=== PATIENT | male | born 1975 ===

== ENCOUNTER 2024-10-01 06:10 | Day surgery (SDC) | payer OTHER ==
[2024-10-01 06:51] LABS: Absolute Basophils 0.1 K/uL (0-0.5); Absolute Eosinophils 0.2 K/uL (0-0.5); Absolute Lymphocytes (CBC) 2.4 K/uL (0.7-4.9); Absolute Monocytes 0.7 K/uL (0.1-1.3); Absolute Neutrophil 2.9 K/uL (1.8-8.0); Basophils % 1.2 % (0-1.3); Eosinophils % 3.6 % (0-4.4); Hematocrit 46.6 % (39.6-49.0); Hemoglobin 16.4 g/dL (13.6-17.9); Lymphocytes % 38.3 % (15.3-44.8); MCH 30.4 pg (27.0-35.0); MCHC 35.1 g/dL (32.0-36.0); MCV 86.7 fL (80-100); MPV 7.3 fL (7.6-11.3); Monocytes % 10.9 % (3.3-12.3); Nucleated Red Blood Cells % 0.2 % (0-0); Platelets 258 thou/uL (152-406); RBC Red Blood Cell Count 5.38 M/uL (4.33-5.43)
[2024-10-01 07:07] LABS: Anion Gap 7.8 mEq/L (5.0-15.0); Potassium 3.8 mEq/L (3.5-5.1)
[2024-10-01] MEDS: Ringers Lactate 1,000 ML IV ONE (07:15)
--- NOTE | 2024-10-01 07:20 | RAD REPORT ---
Procedure: Chest Pa And Lat (2 Views) HISTORY: Preop for hernia repair COMPARISON: none FINDINGS: The lungs appear clear of acute infiltrate. No significant pleural effusion noted. The heart is normal size. IMPRESSION: No acute abnormality is displayed.
[2024-10-01] MEDS ORDERED: ROCURONIUM 50 MG/5 ML VIAL IV ONE (08:17)
[2024-10-01] MEDS ORDERED: MIDAZOLAM HCL 2 MG/2 ML INJ ONE (08:17)
[2024-10-01] MEDS ORDERED: propofoL 200 MG/20 ML VIAL IV ONE (08:17)
[2024-10-01] MEDS ORDERED: FENTANYL CITR 100 MCG/2 ML ONE (08:17)
[2024-10-01] MEDS ORDERED: KETOROLAC 30 MG/ML INJ ONE (08:17)
[2024-10-01] MEDS ORDERED: ONDANSETRON 4 MG/2 ML VIAL ONE (08:17)
[2024-10-01] MEDS ORDERED: LIDOCAINE 1% MPF 5 ML VIAL ONE (08:17)
[2024-10-01] MEDS: CEFAZOLIN SODIUM 1 GM/VIAL ONE (09:25)
[2024-10-01] MEDS ORDERED: NEOSTIGMINE 1 MG/ML -10 ML VIAL ONE (09:46)
[2024-10-01] MEDS ORDERED: GLYCOPYRROLATE 0.2 MG/ML SYR ONE (09:46)
[2024-10-01] MEDS ORDERED: Mastisol Adhesive Liq ONE (09:48)
--- NOTE | 2024-10-01 10:08 | P.BOP ---
Preoperative diagnosis: left inguinal hernia Postoperative diagnosis: same Primary procedure: Laparosopic repair of left inguinal hernia with mesh Estimated blood loss: <10cc Specimen: sac Findings: direct and indirect hernia Anesthesia: General Complications: None Implants: 3d mesh Transferred to: Recovery Room Condition: Good
[2024-10-01] MEDS ORDERED: TAMSULOSIN 0.4 MG SR CAP ONE (11:01)
[2024-10-01] MEDS: TAMSULOSIN 0.4 MG SR CAP PO ONE (11:04)
--- NOTE | 2024-10-01 11:59 | EKG ---
Test Date: 2024-10-01 Test Time: 07:55:43 Cadmium Plater: ADRIANA MEASUREMENT RESULTS: Intervals: Rate: 59 FL: 162 QRSD: 88 QT: 416 QTc: 411 Cunningham: P: 56 FL: 162 QRS: 11 T: 33 INTERPRETIVE STATEMENTS: Sinus bradycardia Otherwise normal ECG No previous ECG available for comparison Electronically Signed On 10-01-24 11:58:59 RN NAVIGATOR by Mak Rene
[2024-10-01 12:33] VITALS: BP 133/85; TEMP 97; O2SAT 98
--- NOTE | 2024-10-01 23:13 | OP ---
Date of Procedure: 10/01/2024 Surgeon: Abdias Fontaine MD Preoperative Diagnosis: Tender left inguinal hernia. Postoperative Diagnosis: Tender left inguinal hernia. Procedure: Laparoscopic repair of tender left inguinal hernia with mesh. Estimated Blood Loss: Less than 10 cc. Anesthesia: General plus local. Implants: 3D mesh. Indication: This ia a case of a 49-year-old patient who comes to us with above diagnoses. Fully exp lained the benefits, alternatives, and risks of laparoscopic versus open repair of left inguinal isadora ia with mesh which include, but not limited to infection, bleeding, damage to adjacent structures, an esthesia complication, recurrence, MT, and even . He also understands this may not relieve any symptoms. He might need more than one surgical intervention. He also understands the pros and cons of mesh placement as we explained to him and all the questions answered to his satisfaction. He sign ed a consent, Procedure In Detail: The patient was brought to the operating room, placed in supine position,. Ane sthesia was done without complication. The abdominal and inguinal region were prepped and draped in a sterile fashion. Local anesthesia was applied followed by sharp incision of the skin in the infrau mbilical region. Incision was carried down to fascia until we found the anterior rectus sheath was o pened on the left side. The muscle retracted laterally to expose the posterior rectus sheath. The p atient was placed in Trendelenburg position. A balloon tipped trocar was placed directed toward the pubic symphysis. Laparoscope was inserted and the balloon was inflated under direct visualization to create the extraperitoneal space. At that moment, the balloon was deflated, removed and insufflatio n was started again and then under direct visualization with the camera, we proceeded to place a 5 mm trocar just above the pubis symphysis, another 1 detention between the first and the second one. The preperitoneal space was further developed by exposing the inferior epigastric vessels keeping them an terior. The Gordy ligament was dissected laterally to the junction with the iliac veins and dissect ion continued inferiorly to the iliopubic tract avoiding damage to the femoral branch of the genitofe moral nerve and lateral femoral cutaneous nerve. The cord structures were skeletonized. We noticed 2 hernias, 1 direct and 1 indirect, both of them were reduced by gentle traction. The direct hernia sac was removed and sample sent to the pathologist. At that moment, I proceeded to introduce a media n 3D mesh in that area aligned in place to cover direct indirect spaces. The mesh was secured in raghavendra ce the lateral and superior to the iliopubic tract and inferior medial to the Gordy ligament with th e help of [employer]. After making sure we have complete hemostasis, we put some local anesthetics ove r the area and then we allowed the air to escape while holding the mesh in place. The anterior rectu s sheath was then closed with #1 Vicryl after removing the trocars. A 2-0 chromic was used for the s ubcutaneous tissue and sterile dressings on top. Sponge counts and instrument counts were correct. At the end of the case, testicles were in the scrotum. The patient sent to Recovery in stable condit ion. Disposition: Home. Condition: Stable. Activity: As tolerated, no heavy lifting. Followup: In my office in 1 week. Call for appointment [phone]. Keep area dry for 48 hours, then may shower. Keep Steri-Strip intact. For medications, see orders. ROMI/MODL Voice ID: [id number] Report ID: [id number]
== END 2024-10-01 11:45 | disposition home or self-care (01) ==
LOC: OR 06:10
PROVIDERS: ATTEND Surgery
PROC: 0YU64JZ Supplement Left Inguinal Region with Synthetic Substitute, Percutaneous Endoscopic Approach (ICD-10-PCS; principal; 2024-10-01 09:00)
DX: K40.90 Unilateral inguinal hernia, without obstruction or gangrene, not specified as recurrent (principal)
CPT/HCPCS: 93005; 85025; 80048; 36415; 88302; 71046; 49650; J2704; J2710; J2003; J2250; J3010; J2405; J7120; J0690; C1781